=== PATIENT | female | born 1940 | race Caucasian/White ===

== ENCOUNTER 2017-03-11 12:15 | Inpatient (IN) | payer MEDICARE ==
[~2017-03-11] VITALS: Ht 175.3 cm; Wt 59.0 kg
--- NOTE | 2017-03-11 12:20 | NUR ---
PT CAME IN FOR LEFT HIP AND LEG PAIN S/P TRIP AND FALL AT HOME. NAD NOTED. VSS. NO SKIN BREAKDOWN NOTED. DENIES KO, DENIES HEAD TRAUMA. VSS. SAFETY AND COMFORT MEASURES PROVIDED. WILL MONITOR.
--- NOTE | 2017-03-11 12:30 | NUR ---
PT TAKEN TO CT.
--- NOTE | 2017-03-11 13:42 | NUR ---
PAGED DR. LYONS FOR CONSULT
--- NOTE | 2017-03-11 13:44 | NUR ---
DR. FLOWERS AT TO DISCUSS POC.
[2017-03-11 13:57] LABS: BASOPHILS % (AUTO) 0.1 % (0.0-2.0); LYMPHOCYTES # (AUTO) 0.6 /CMM (0.8-4.8); MONOCYTES # (AUTO) 0.5 /CMM (0.1-1.30); MONOCYTES % (AUTO) 6.9 % (2.0-12.0)
[2017-03-11 13:59] LABS: EOSINOPHILS % (AUTO) 0.3 % (0.0-6.0); HEMATOCRIT 47 % (33-45); HEMOGLOBIN 10.2 g/dL (11.5-14.8); LYMPHOCYTES % (AUTO) 8.6 % (20.0-44.0); MEAN CORPUSCULAR HEMOGLOBIN 20 PG (26.0-33.0); MEAN CORPUSCULAR HGB CONC 22 g/dl (31.0-36.0); MEAN CORPUSCULAR VOLUME 91 fL (82-100); NEUTROPHILS # (AUTO) 6.3 /CMM (1.8-8.9); NEUTROPHILS % (AUTO) 84.1 % (43.0-81.0); PLATELET COUNT (AUTO) 175 /CMM (150-450); RDW COEFFICIENT OF VARIATION 12.9 (11.5-15.0); RED BLOOD CELL COUNT(AUTO) 5.19 MIL/uL (4.0-5.2); WHITE BLOOD COUNT (AUTO) 7.4 K/uL (4.3-11.0)
[2017-03-11] MEDS ORDERED: MORPHINE SULFATE INJ 2 MG/ML DISP.SYRIN IV ONE (14:00)
[2017-03-11] MEDS ORDERED: ONDANSETRON HCL/PF 4 MG/2 ML VIAL IVP ONE (14:00)
[2017-03-11] MEDS ORDERED: IV NS 0.9% 500 ML BAG IV ONE (14:00)
[2017-03-11 14:06] LABS: CALCIUM, SERUM 9.2 mg/dL (8.5-10.1); CREATININE 0.6 mg/dL (0.6-1.3); POTASSIUM 3.7 mmol/L (3.5-5.1)
[2017-03-11 14:11] LABS: INR 0.98 (0.87-1.13); PROTHROMBIN TIME 10.2 SECS (9.5-12.7)
--- NOTE | 2017-03-11 14:13 | NUR ---
REPAGED ZIG ZAG SPRING MACHINE OPERATOR ORTHO
[2017-03-11] MEDS ORDERED: IV NS 0.9% 500 ML IV ONE (14:42)
--- NOTE | 2017-03-11 14:45 | NUR ---
NANDA PARKER AT FOR JOSE.
--- NOTE | 2017-03-11 15:05 | NUR ---
REPORT GIVEN TO VANESSA CHAPMAN FOR MS ROOM 204
[2017-03-11 15:20] VITALS: BP 134/70
--- NOTE | 2017-03-11 15:20 | NUR ---
MS TALENT DEVELOPMENT CONSULTANT 76 YEARS OLD FEMALE ADMITTED FROM HOME, PATIENT IS A/O X4. APPEARS ANXIOUS, C/O LEFT HIP PAIN 2/10, PER PATIENT ONLY IF SHES MOVING. V/S TAKEN AND RECORDED, NO SOB, BREATHING EVEN AND NON LABORED. IV IN LEFT AC G20 PATENT AND INTACT, FLUSHES WELL. PATIENT IS ON NPO STATUS ORDERED. MADE COMFORTABLE IN BED. CALL LIGHT WITHIN REACH. WILL CONT TO MONITOR.
[2017-03-11] MEDS ORDERED: MORPHINE SULFATE INJ 2 MG/ML DISP.SYRIN IV PRN (15:30)
[2017-03-11] MEDS ORDERED: MAGNESIUM HYDROXIDE 30 ML UDC PO PRN (15:30)
[2017-03-11] MEDS ORDERED: ACETAMINOPHEN 325 MG TABLET PO PRN (15:30)
[2017-03-11] MEDS ORDERED: MAG HYDROX/AL HYDROX/SIMETH 30 ML UDC PO PRN (15:30)
[2017-03-11] MEDS ORDERED: Z GUARD REMEDY 2 OZ OINT TP PRN (15:30)
[2017-03-11] MEDS ORDERED: ONDANSETRON HCL/PF 4 MG/2 ML VIAL IVP PRN (15:30)
[2017-03-11] MEDS ORDERED: IV SET PRIMARY PUMP SET 1 EA INFUS.SET MC ONE (15:49)
[2017-03-11] MEDS: IV NS 0.9% 1,000 ML IV PRN (15:56)
--- NOTE | 2017-03-11 17:25 | NUR ---
PATIENT IS SEEN BY LD TODAY, PER LD PATIENT CAN EAT, SURGERY WILL NOT BE TONIGHT AND HE WILL PLACE ODER FOR NPO POSSIBLY MN. PLACE PATIENT ON REGULAR DIET ORDERED.
--- NOTE | 2017-03-11 18:46 | NUR ---
MS RN CLOSING NOTES PATIENT IN BED, AWAKE. NOT IN DISTRESS. PATIENT IS SEEN BY DR. SNIDER, PER MD PATIENT IS CLEARED FOR SURGERY TOMORROW 03/12/17. PATIENT CONSENTED THE PROCEDURE, CONSENT FORM PLACE IN THE CHART. PATIENT WILL BE NPO AFTER MN ORDERED. CALL LIGHT WITHIN REACH, NO C/O PAIN THIS TIME. CALL LIGHT WITHIN REACH, WILL ENDORSE TO LIPCOAT SPRAYER RN FOR CONTINUITY OF CARE.
--- NOTE | 2017-03-11 19:30 | NUR ---
RN NOTE; RECEIVED PT IN BED AWAKE AND ALERT W/ FAMILY AT THE BED SIDE. BREATHING EVENLY. NO SOB, NAD. NO C/O PAIN OR DISCOMFORT AT THIS TIME EXCEPT UPON REPOSITIONING, ON ONGOING IVF HYDRATION. AM PROCEDURE AND NPO STATUS WAS EXPLAINED TO THE PT AND THE FAMILY W/ UNDERSTANDING. NEEDS ATTENDED. CALL LIGHT WITHIN REACH. WILL CONT TO MONITOR.
[2017-03-11 20:00] VITALS: BP 109/62
[2017-03-11 20:06] VITALS: BP 109/62
[2017-03-11] MEDS: HYDROCODONE/APAP 5/325MG 1 EACH TABLET PO PRN (20:08)
--- NOTE | 2017-03-11 20:11 | NUR ---
NORCO 5-325 GIVEN ORDERED PER PT'S REQUEST FRO C/O MODERATED L HIP PAIN. WILL CONT TO MONITOR
[2017-03-12] VITALS (8 sets, daily range): BP systolic 91–111; BP diastolic 38–60
--- NOTE | 2017-03-12 03:54 | NUR ---
MORPHINE GIVEN ORDERED FOR C/O SEVERE L HIP PAIN . WILL CONT TO MONITOR.
--- NOTE | 2017-03-12 06:42 | NUR ---
RN NOTE; PT IN BED AWAKE AND ALERT. NO C/O PAIN OR DISCOMFORT AT THIS TIME. PAIN MED GIVEN ORDERED. NPO FOR SX TODAY. NEEDS ATTENDED. CALL LIGHT WITHIN REACH, WILL CONT TO MONITOR AND WILL ENDORSE TO AM SHIFT FOR MICHELE.
[2017-03-12 06:44] LABS: BASOPHILS % (AUTO) 0.5 % (0.0-2.0); EOSINOPHILS # (AUTO) 0.1 /CMM (0.0-0.7); EOSINOPHILS % (AUTO) 1.4 % (0.0-6.0); HEMATOCRIT 35 % (33-45); HEMOGLOBIN 11.5 g/dL (11.5-14.8); LYMPHOCYTES # (AUTO) 1.1 /CMM (0.8-4.8); LYMPHOCYTES % (AUTO) 16.5 % (20.0-44.0); MEAN CORPUSCULAR HEMOGLOBIN 31 PG (26.0-33.0); MEAN CORPUSCULAR HGB CONC 33 g/dl (31.0-36.0); MEAN CORPUSCULAR VOLUME 91 fL (82-100); MONOCYTES # (AUTO) 0.7 /CMM (0.1-1.30); MONOCYTES % (AUTO) 10.2 % (2.0-12.0); NEUTROPHILS # (AUTO) 4.9 /CMM (1.8-8.9); NEUTROPHILS % (AUTO) 71.4 % (43.0-81.0); PLATELET COUNT (AUTO) 133 /CMM (150-450); RDW COEFFICIENT OF VARIATION 13.7 (11.5-15.0); RED BLOOD CELL COUNT(AUTO) 3.78 MIL/uL (4.0-5.2); WHITE BLOOD COUNT (AUTO) 6.9 K/uL (4.3-11.0)
[2017-03-12 07:08] LABS: THYROID STIMULATING HORMONE 1.851 uIU/mL (0.358-3.74)
[2017-03-12 07:09] LABS: ALBUMIN 3.1 g/dL (3.4-5.0); BILIRUBIN,TOTAL 1.1 mg/dL (0.2-1.0); CALCIUM, SERUM 8.2 mg/dL (8.5-10.1); CREATININE 0.6 mg/dL (0.6-1.3); MAGNESIUM 1.7 mg/dL (1.8-2.4); PHOSPHORUS 2.9 mg/dL (2.5-4.9); POTASSIUM 3.9 mmol/L (3.5-5.1)
--- NOTE | 2017-03-12 07:15 | NUR ---
MS RN NOTES RECEIVED PATIENT IN BED, AWAKE, A/O X4. BREATHING EVEN AND NON LABORED. PATIENT IS ON NPO SINCE WI, FOR SURGERY TODAY LEFT HIP HEMIARTHROPLASTY. NO C/O PAIN AT THIS TIME. CALL LIGHT WITHIN REACH. WILL CONT TO MONITOR.
[2017-03-12] MEDS: PANTOPRAZOLE 40 MG TABLET.DR PO SCH (07:30)
[2017-03-12] MEDS ORDERED: SECONDARY IV SET 1 EA INFUS.SET MC ONE ×2 (08:00→15:46)
[2017-03-12] MEDS: Magnesium 1GM/D5W 100ML PREMIX 100 ML IV SCH ×2 (08:06→09:12)
--- NOTE | 2017-03-12 09:02 | NUR ---
CALLED SPOKE TO DR. STERLING REGARDING PATIENT CODE STATUS-MODIFIED FULL CODE DNI. PATIENT TO HAVE SURGERY TODAY. EXPLAINED TO THE PATIENT CODE STATUS FULL CODE AND DNI AND THE REVERSAL OF THE CODE AFTER THE SURGERY IF SHE STILL PREFERS TO BE DNI, PATIENT VERBALIZED UNDERSTANDING AND STATED SHES OK FOR INTUBATION TO SURGERY.
--- NOTE | 2017-03-12 09:48 | NUR ---
PLACE ORDER 2 UNITS OF PRBC FOR SURGERY PER DENISE-OR NURSE.
--- NOTE | 2017-03-12 09:58 | NUR ---
PATIENT IS TAKEN TO OR FOR SURGERY-LEFT HIP HEMIARTHROPLASTY. DR. STERLING SPOKE TO THE PATIENT PRIOR SURGERY.
[2017-03-12] MEDS ORDERED: BACITRACIN 50000 UNITS/VIAL ONE (10:11)
[2017-03-12] MEDS ORDERED: MIDAZOLAM HCL 2 MG/2ML VIAL ONE (10:13)
[2017-03-12] MEDS ORDERED: ROCURONIUM BROMIDE 50 MG/5 ML ONE (10:13)
[2017-03-12] MEDS ORDERED: FENTANYL PF 100MCG/2ML AMPUL ONE ×2 (10:13→11:49)
[2017-03-12] MEDS ORDERED: CLINDAMYCIN 900 MG/6 ML VIAL ONE (10:19)
[2017-03-12] MEDS ORDERED: BUPIVACAINE 0.5 % PF 150 MG/30 ML VIAL ONE (11:55)
--- NOTE | 2017-03-12 12:30 | NUR ---
PATIENT IS BACK FROM OR, S/P LEFT HIP HEMIARTHROPLASTY BY DR. LYONS. PATIENT IS AWAKE, ON ROOM AIR, TOLERATING WELL. NO C/O PAIN AT THIS TIME. V/S TAKEN AND RECORDED. LEFT HIP INCISION, DRESSING INTACT, NO BLEEDING NOTED. SCD, ABDUCTION WEDGE PILLOW IN BETWEEN LEGS. LEFT SIDE OF THE MOUTH, NOTED WITH REDNESS, PATIENT WAS PLACE ON MASK FOR OXYGEN PER DONN-OR NURSE. IV LR INFUSING AT 75ML/HR STARTED FROM OR. WILL CONT TO MONITOR PATIENT CLOSELY. INFORMED SON-ALISSON.
[2017-03-12] MEDS ORDERED: ONDANSETRON HCL/PF 4 MG/2 ML VIAL IV PRN (13:00)
[2017-03-12] MEDS ORDERED: DOCUSATE SODIUM 250 MG CAPSULE PO PRN (13:00)
[2017-03-12] MEDS ORDERED: SENNOSIDES 8.6 MG TABLET PO PRN (13:00)
[2017-03-12] MEDS ORDERED: HYDROCODONE/APAP 5/325MG 1 EACH TABLET PO PRN (13:00)
[2017-03-12] MEDS ORDERED: ZOLPIDEM TARTRATE 5 MG TABLET PO PRN (13:00)
[2017-03-12] MEDS ORDERED: BISACODYL SUPP (10 MG) 10 MG/SUPP.RECT SUPP.RECT RC PRN (13:00)
[2017-03-12] MEDS ORDERED: ACETAMINOPHEN 325 MG TABLET PO PRN (13:00)
[2017-03-12] MEDS ORDERED: IV LR 1000 ML 1,000 ML IV PRN (13:00)
[2017-03-12] MEDS ORDERED: HYDROMORPHONE 1 MG/1 ML DISP.SYRIN IV PRN (13:00)
[2017-03-12] MEDS ORDERED: IV SET PRIMARY PUMP SET 1 EA INFUS.SET MC ONE (13:42)
[2017-03-12] MEDS: IV NS 0.9% 1,000 ML IV PRN (14:52)
--- NOTE | 2017-03-12 14:58 | NUR ---
IVF LR STOP, PATIENT TOLERATING PO DIET, CONSUMED 75% OF HER MEAL, NO N/V NOTED.
[2017-03-12] MEDS: CLINDAMYCIN 600 MG in IV D5W 50 ML IV SCH ×2 (15:54→21:47)
--- NOTE | 2017-03-12 17:05 | NUR ---
WHILE BOAT JOINER IS ASSISTING PATIENT TO TURN FOR TOILETING NEEDS USING BEDPAN, PATIENT STATED SHE FEELS AND HEARD A MILD POP FROM THE AREA OF INCISION, DRESSING IN PLACE, NO BLEEDING NOTED. NO C/O PAIN AT THIS TIME. MAINTAIN ABDUCTION PILLOW IN BETWEEN LEGS. INFORMED PA-COURY, WITH NO NEW ORDERS AT THIS TIME. WILL CONT TO MONITOR. OFFERED PAIN MEDICATION TO THE PATIENT AND INSTRUCTED TO CALL FOR ASSISTANCE IF SHE NEEDS ASSISTANCE WITH MOVING, PATIENT VERBALIZED UNDERSTANDING.
--- NOTE | 2017-03-12 19:30 | NUR ---
MS RN NOTES RECEIVED ON BED A/O X4,S/P LEFT HIP JEANETTE ARTHROPLASTY,DRESSING TO LEFT HIP INTACT AND DRY,FIRST DRESSING CHANGE YO BE DONE BT NURSE SATURDAY.PRESENT IVF INFUSING WELL VIA IV PUMP AT 75ML/HR RATE.SITE PATENT ON RIGHT WRIST.CALL LIGHT IN REACH,NEEDS ANTICIPATED.
--- NOTE | 2017-03-12 19:30 | NUR ---
MS RN CLOSING NOTES PATIENT IN BED, AWAKE. NOT IN DISTRESS. ON ANTIBIOTIC WITH NO ADVERSE REACTION NOTED, AFEBRILE. MAGNESIUM SUPPLEMENTED. LAB IN AM. LLE WBAT, FOR PT EVAL. LEFT HIP INCISION, DRESSING INTACT, FIRST DRESSING SATURDAY AM-NURSE TO CHANGE ORDERED. ENDORSED TO CLINICAL APPLICATIONS MANAGER RN FOR CONTINUITY OF CARE.
--- NOTE | 2017-03-12 22:00 | NUR ---
MS RN NOTES DUE CLEOCIN 600MG IVPB HUNG
--- NOTE | 2017-03-13 02:30 | NUR ---
MS RN NOTES SALINE LOCK ACCIDENTALLY PULLED OUT.NEW SALINE LOCK PLACE ON RIGHT FOREARM #22,SAME IVF INFUSING.
[2017-03-13] MEDS: CLINDAMYCIN 600 MG in IV D5W 50 ML IV SCH (04:00)
[2017-03-13] MEDS: IV NS 0.9% 1,000 ML IV PRN (05:16)
--- NOTE | 2017-03-13 06:54 | NUR ---
MS RN NOTES FAIRLY RESTED,VOIDING FREELY PER BEDPAN,NO C/O PAIN.REFUSED LAST DOSE OF CLINDAMYCIN IV.CLAIMED SHE DOESNT FEEL GOOD WITH IT.IVF INFUSING,IN NO ACUTE DISTRESS.WILL ENDORSE TO MITCHELL CHAPMAN FOR MICHELE
[2017-03-13 06:59] LABS: BASOPHILS % (AUTO) 0.1 % (0.0-2.0); HEMATOCRIT 30 % (33-45); HEMOGLOBIN 10.2 g/dL (11.5-14.8); LYMPHOCYTES % (AUTO) 11.4 % (20.0-44.0); MEAN CORPUSCULAR HEMOGLOBIN 31 PG (26.0-33.0); MEAN CORPUSCULAR HGB CONC 34 g/dl (31.0-36.0); MEAN CORPUSCULAR VOLUME 91 fL (82-100); MONOCYTES # (AUTO) 1.1 /CMM (0.1-1.30); MONOCYTES % (AUTO) 12.9 % (2.0-12.0); NEUTROPHILS # (AUTO) 6.5 /CMM (1.8-8.9); NEUTROPHILS % (AUTO) 75.6 % (43.0-81.0); PLATELET COUNT (AUTO) 107 /CMM (150-450); RDW COEFFICIENT OF VARIATION 13.5 (11.5-15.0); RED BLOOD CELL COUNT(AUTO) 3.28 MIL/uL (4.0-5.2); WHITE BLOOD COUNT (AUTO) 8.6 K/uL (4.3-11.0)
[2017-03-13 07:17] LABS: CALCIUM, SERUM 7.9 mg/dL (8.5-10.1); CREATININE 0.5 mg/dL (0.6-1.3); POTASSIUM 4.2 mmol/L (3.5-5.1)
--- NOTE | 2017-03-13 07:30 | NUR ---
MS CHAPMAN INITIAL NOTES REPORT WAS RECEIVED. PT WAS LAYING IN BED A/O X3, WITH NO COMPLAINTS OF PAIN AT THIS MOMENT. IV ACCESS ON RIGHT WRIST #20 WITH NS RUNNING @ 75 ML/HR. PT USES BED CELESTE. BED IS IN LOW POSITION AND CALL LIGHT WITHIN REACH. PT WOULD LIKE TO GO TO [facility] ON DISCHARGE WILL CONTINUE TO MONITOR
[2017-03-13 07:55] VITALS: BP 126/58
[2017-03-13 08:00] VITALS: BP 105/88
[2017-03-13] MEDS ORDERED: IV NS 0.9% 1,000 ML IV PRN (08:01)
[2017-03-13] MEDS: PANTOPRAZOLE 40 MG TABLET.DR PO SCH (08:43)
[2017-03-13] MEDS: ENOXAPARIN SODIUM 40 MG/0.4 ML DISP.SYRIN SQ SCH (08:47)
--- NOTE | 2017-03-13 10:00 | NUR ---
MS/RN S/B Dr Potts Seen by Dr Potts - IV fluids to be held as patient is tolerating oral. Follow up with echo report and physical therapy.
--- NOTE | 2017-03-13 13:15 | NUR ---
MS/revenue accounting manager Per patient's son, patient does not wish to be discharged to [facility], would like to request placement at [facility]. Explained to son the benefit of going to acute rehab over SNF, caseworker protective services called to inform them of request.
[2017-03-13] MEDS: HYDROCODONE/APAP 5/325MG 1 EACH TABLET PO PRN (13:36)
--- NOTE | 2017-03-13 14:10 | NUR ---
MS/maintenance and engineering manager concession manager here to speak with patient and family.
[2017-03-13 16:00] VITALS: BP 109/61
[2017-03-13 16:13] VITALS: BP 109/61
--- NOTE | 2017-03-13 18:00 | NUR ---
MS/RN S/B Orthopedics Seen by Inna Doty - cleared for discharge from ortho standpoint.
--- NOTE | 2017-03-13 18:33 | NUR ---
MS/RN End note Patient now scheduled for discharge tomorrow to [facility], prescription already wrote and placed in front of chart. IVF discontinued as patient eating and drinking. No new needs or concerns at this time, will continue to monitor and endorse to cage shift manager.
--- NOTE | 2017-03-13 19:25 | NUR ---
MS RN NOTES RECEIVED PT IN BED, AWAKE, A/OX 4 , VERBALLY RESPONSIVE. NO DISTRESS, GAIL SOB. RESPIRATION IS EVEN AND UNLABORED. IV SITE ON RIGHT WRIST INTACT AND PATENT PT IS CONTINENT, ASSISTED PT WITH BED CELESTE, ABLE VOID FREELY WITH YELLOW URINE, NO HEMATURIA NOTED. DENIES ANY PAIN OR DISCOMFORT AT THIS TIME. ABDUCTOR PILLOW IN PLACE. ALL NEEDS ATTENDED. CALL LIGHT WITHIN REACH. WILL CONTINUE TO MONITOR.
[2017-03-13 20:00] VITALS: BP 122/59
[2017-03-13 22:00] VITALS: BP 122/59
[2017-03-14 00:04] VITALS: BP 122/59
--- NOTE | 2017-03-14 06:37 | NUR ---
MS RN NOTES PT IN BED, AWAKE, A/OX 4 , WATCHING TV AT THIS TIME. VERBALLY RESPONSIVE. NO DISTRESS, DENIES SOB. RESPIRATION IS EVEN AND UNLABORED. IV SITE ON RIGHT WRIST INTACT AND PATENT PT IS CONTINENT. DENIES ANY PAIN OR DISCOMFORT AT THIS TIME. ABDUCTOR WEDGE IN PLACE. LEFT HIP SURGICAL SITE WITH INTACT DRESSING , NO BLEEDING NOTED. FOR DRESSING CHANGE TODAY. ALL NEEDS ATTENDED. CALL LIGHT WITHIN REACH. SAFETY PRECAUTIONS OBSERVED. WILL ENDORSE TO NEXT SHIFT FOR MICHELE.
--- NOTE | 2017-03-14 07:30 | NUR ---
MS RN INITIAL NOTES HAND OFF REPORT WAS RECEIVED BY FARMER VEGETABLE. PT IS IN BED AWAKE WITH NO COMPLAINTS OF PAIN AT THIS TIME. NO SOB. IV ACCESS ON RIGHT WRIST #20 WITH NO FLUIDS RUNNING AT THIS TIME. PT IS A/O X2, SEEMS TO BE CONFUSED AND CANT RECALL EVENTS APPROPRIATELY FROM YESTERDAY. AWAITING ORTHO FOR FIRST DRESSING CHANGE WILL CONTINUE TO MONITOR
[2017-03-14 07:54] LABS: BASOPHILS % (AUTO) 0.2 % (0.0-2.0); EOSINOPHILS % (AUTO) 0.4 % (0.0-6.0); HEMATOCRIT 30 % (33-45); MEAN CORPUSCULAR HEMOGLOBIN 31 PG (26.0-33.0); MEAN CORPUSCULAR HGB CONC 34 g/dl (31.0-36.0); MEAN CORPUSCULAR VOLUME 92 fL (82-100); MONOCYTES % (AUTO) 12.3 % (2.0-12.0); NEUTROPHILS # (AUTO) 6.4 /CMM (1.8-8.9); NEUTROPHILS % (AUTO) 75.1 % (43.0-81.0); PLATELET COUNT (AUTO) 108 /CMM (150-450); RDW COEFFICIENT OF VARIATION 13.4 (11.5-15.0); RED BLOOD CELL COUNT(AUTO) 3.21 MIL/uL (4.0-5.2); WHITE BLOOD COUNT (AUTO) 8.5 K/uL (4.3-11.0)
[2017-03-14 08:00] VITALS: BP 136/70
[2017-03-14 08:04] LABS: CREATININE 0.4 mg/dL (0.6-1.3); POTASSIUM 4.1 mmol/L (3.5-5.1)
[2017-03-14] MEDS: PANTOPRAZOLE 40 MG TABLET.DR PO SCH (08:19)
[2017-03-14] MEDS: ENOXAPARIN SODIUM 40 MG/0.4 ML DISP.SYRIN SQ SCH (08:20)
[2017-03-14 08:25] VITALS: BP 136/70
--- NOTE | 2017-03-14 09:00 | NUR ---
MS/RN Medications Morning medications administered as ordered.
--- NOTE | 2017-03-14 10:00 | NUR ---
MS/RN S/B Ortho Seen by Inna MCKEON - dressing changed, from orthopedic standpoint, patient is cleared for discharged. Need to follow up with Dr Griffin in 7-10 days.
--- NOTE | 2017-03-14 11:15 | NUR ---
MS/wharfmaster paperwork Discharge paperwork prepared, medical record copied.
[2017-03-14] MEDS: HYDROCODONE/APAP 5/325MG 1 EACH TABLET PO PRN (11:53)
--- NOTE | 2017-03-14 15:18 | NUR ---
MS/RN bread supervisor time Per case maker, transport arranged for 4:30p
[2017-03-14 16:01] VITALS: BP 98/48
--- NOTE | 2017-03-14 16:23 | NUR ---
MS ECOLOGIST NOTES REPORT WAS GIVEN TO KATHI AT [facility]. PT WAS PICKED UP FOR TRANSPORTATION, REPORT WAS GIVEN TO THE EMT'S. PT IS STABLE. BELONGINGS WERE CHECKED AND VERIFIED WITH THE PATIENT. EXIT CARE WAS EXPLAINED AND EDUCATION WAS GIVEN, TWO NURSES SIGNED. MEDICATION LIST WAS GIVEN TO HER. PICTURES WERE TAKEN OF WOUNDS AND OF SURGICAL WOUND. ID BAND WAS REMOVED. PT WAS TAKEN DOWN BY EMT.
[2017-03-15 07:06] LABS: APPEARANCE,URINE CLEAR (CLEAR); BILIRUBIN,URINE NEGATIVE (NEGATIVE); BLOOD, URINE TRACE-INTA Ery/uL (NEGATIVE); COLOR,URINE YELLOW (YELLOW); KETONES,URINE TRACE (NEGATIVE); LEUKOCYTE ESTERASE ,URINE 1+ (NEGATIVE); NITRITE, URINE NEGATIVE (NEGATIVE); PROTEIN,URINE NEGATIVE (NEGATIVE); UGLUCOSE NEGATIVE (NEGATIVE); UROBILINOGEN,URINE 0.2 EU/dL (0.2)
[2017-03-15 07:13] LABS: BACTERIA,URINE 1+ /HPF (None Seen); RBC,URINE 0-2 /HPF (0-2)
== END 2017-03-14 16:50 | DRG 470 ==
LOC: ER 12:17 → MEDSG2 14:43
PROVIDERS: ADMIT Contractor; ATTEND Contractor
PROC: 0SRS0JZ Replacement of Left Hip Joint, Femoral Surface with Synthetic Substitute, Open Approach (ICD-10-PCS; principal; 2017-03-11)
DX: S72.002A Fracture of unspecified part of neck of left femur, initial encounter for closed fracture (principal); Z96.641 Presence of right artificial hip joint; D63.8 Anemia in other chronic diseases classified elsewhere; W01.0XXA Fall on same level from slipping, tripping and stumbling without subsequent striking against object, initial encounter; Y93.9 Activity, unspecified; Y92.009 Unspecified place in unspecified non-institutional (private) residence as the place of occurrence of the external cause; Y93.E9 Activity, other interior property and clothing maintenance; Z91.81 History of falling
CPT/HCPCS: 36415; 71010-TC; 72100-TC; 73510-TC; 73562; 80048-TC; 80053-TC; 80061-TC; 81000-TC; 83735-TC; 84100-TC; 84443-TC; 85025-TC; 85730-TC; 86850-TC; 86921-TC; 87086-TC; 88305-TC; 88311-TC; 93307-TC; 97001-TC; 97116-TC; 97530-TC; A4217; A4606; A6402; C1713; J1100; J1650; J2250; J2270; J2370; J2405; J2704; J3010; J3475; J3490; J7030; J7040; J7060; J7120; Z7610